=== PATIENT | female | born 1995 ===

== ENCOUNTER 2018-11-04 12:14 | Emergency (ER) | payer OTHER ==
[2018-11-04 12:31] VITALS: BP 116/68
[2018-11-04] MEDS ORDERED: Ondansetron INJ* 2 MG/ML VIAL IV ONE (12:40)
[2018-11-04] MEDS ORDERED: NS 0.9% 1000 ML** 1,000 ML IV ONE (12:41)
--- NOTE | 2018-11-04 13:57 | UC ---
Nausea/Vomiting/Diarrhea HPI - HPI Summary HPI Summary: Ms Hall felt fine yesterday but woke up about 3:00 in the morning not feeling well. She began to get more and more nausea and eventually started to vomit and has been vomiting all morning. She states that she doesn't think she's lost a lot of fluids because she was just vomiting bile. She's had no diarrhea or pain. She says she has no other complaints except that if she sits up she feels worse. She denies tinnitus. - History of Current Complaint Chief Complaint: UCGeneralIllness Stated Complaint: NAUSEOUS Time Seen by Provider: 11/04/18 12:33 Hx Obtained From: Patient Hx Last Menstrual Period: spotting 1 week ago, has implant Onset/Duration: Gradual Onset Timing: Constant Severity Initially: Moderate Severity Currently: Severe Pain Intensity: 10 Aggravating Factor(s): Other: - Upright positioning Alleviating Factor(s): Position Nausea/Vomiting Presence: Nauseated, Vomiting Vomiting Frequency: Every 15-60 minutes Nausea/Vomiting Duration: 0-12 hours Vomiting Characteristics: Bilious Diarrhea Presence: No - Allergies/Home Medications Allergies/Adverse Reactions: Allergies Allergy/AdvReac Type Severity Reaction Status Date / Time No Known Allergies Allergy Verified 11/04/18 12:32 Home Medications: Home Medications Etonogestrel [Nexplanon] 68 mg IMPLANT 11/04/18 [History] PMH/Surg Hx/FS Hx/Imm Hx Previously Healthy: Yes - Surgical History Surgical History: None - Social History Alcohol Use: Rare Substance Use Type: None Smoking Status (MU): Never Smoked Tobacco Review of Systems All Other Systems Reviewed And Are Negative: Yes Physical Exam - Summary Physical Exam Summary: She was nontoxic in appearance with stable vital signs but looked miserable. Triage Information Reviewed: Yes Appearance: Well-Appearing Vital Signs: Initial Vital Signs Temp 97.7 F 11/04/18 12:26 Pulse 74 11/04/18 12:26 Resp 16 11/04/18 12:26 BP 116/68 11/04/18 12:26 Pulse Ox 100 11/04/18 12:26 Vital Signs Reviewed: Yes Eye Exam: Normal - She had a slight amount of nonsustained nystagmus to the left. ENT Exam: Normal Neck exam: Normal Respiratory Exam: Normal Cardiovascular Exam: Normal Abdominal Exam: Normal Bowel Sounds: Positive: Present Naus/Vom/Diarrhea Course/Dx - Course Course Of Treatment: We started an IV here gave her a liter of fluid and some Zofran and she felt significantly improved. I think this is likely viral and I will treat her with Zofran ODT for symptomatic treatment. - Differential Dx/Diagnosis Provider Diagnosis: Nausea & vomiting Discharge - Sign-Out/Discharge Documenting (check all that apply): Patient Departure All imaging exams completed and their final reports reviewed: No Studies - Discharge Plan Condition: Stable Disposition: HOME Patient Education Materials: Acute Nausea and Vomiting (ED) Referrals: No Primary Care Phys,NOPCP [Primary Care Provider] - - Billing Disposition and Condition Condition: STABLE Disposition: Home
[2018-11-04 19:25] LABS: HIV 4th Generation Negative (Negative)
== END 2018-11-04 14:02 | disposition home or self-care (01) ==
LOC: UCEAST 12:14
DX: R11.2 Nausea with vomiting, unspecified (principal)
CPT/HCPCS: 36415; 87389; 96360; 96374; 99202; G0463; J2405

== ENCOUNTER 2018-12-05 18:11 | Emergency (ER) | payer OTHER ==
[2018-12-05] MEDS ORDERED: Ibuprofen TAB* 600 MG PO ONE (19:57)
--- NOTE | 2018-12-05 19:57 | ED ---
Upper Extremity Pain - HPI Summary HPI Summary: Complains of right wrist pain status post fall today. Denies any other pain in her symptoms. - History of Current Complaint Chief Complaint: EDExtremityUpper Stated Complaint: R WRIST PAIN PER PT Time Seen by Provider: 12/05/18 18:50 Hx Obtained From: Patient Hx Last Menstrual Period: spotting 1 week ago, has implant Mechanism Of Injury: Fall From A Standing Position Onset/Duration: Started Hours Ago Timing: Constant Severity Initially: Moderate Severity Currently: Moderate Pain Location: Wrist Character: Aching, Throbbing Aggravating Factor(s): Movement Alleviating Factor(s): Rest, Ice Associated Signs & Symptoms: Positive: Swelling - Allergies/Home Medications Allergies/Adverse Reactions: Allergies Allergy/AdvReac Type Severity Reaction Status Date / Time No Known Allergies Allergy Verified 12/05/18 18:16 PMH/Surg Hx/FS Hx/Imm Hx Endocrine/Hematology History: Denies: Hx Anticoagulant Therapy Cardiovascular History: Denies: Hx Pacemaker/ICD History: Denies: Hx Dialysis Sensory History: Denies: Hx Legally Blind Opthamlomology History: Denies: Hx Eye Prosthesis Neurological History: Denies: Hx Dementia Psychiatric History: Denies: Hx Autism Infectious Disease History: No Infectious Disease History: Denies: Traveled Outside the [place] in Last 30 Days - Family History Known Family History: Positive: Non-Contributory - Social History Alcohol Use: Occasionally Substance Use Type: Reports: None Smoking Status (MU): Never Smoked Tobacco Review of Systems Constitutional: Negative Eyes: Negative ENT: Negative Cardiovascular: Negative Respiratory: Negative Gastrointestinal: Negative Genitourinary: Negative Musculoskeletal: Other Skin: Negative Neurological: Negative Psychological: Normal All Other Systems Reviewed And Are Negative: Yes Physical Exam - Summary Physical Exam Summary: Mild swelling to medial right wrist. Snuffbox tenderness. PMS intact distally. Triage Information Reviewed: Yes Vital Signs On Initial Exam: Initial Vitals Temp Pulse Resp BP Pulse Ox 98.1 F 73 18 126/62 98 12/05/18 18:13 12/05/18 18:13 12/05/18 18:13 12/05/18 18:13 12/05/18 18:13 Vital Signs Reviewed: Yes Appearance: Positive: Well-Appearing Skin: Positive: Warm Head/Face: Positive: Normal Head/Face Inspection Eyes: Positive: Normal Neck: Positive: Supple Respiratory/Lung Sounds: Positive: Clear to Auscultation Cardiovascular: Positive: Normal Abdomen Description: Positive: Nontender Musculoskeletal: Positive: Normal Neurological: Positive: Normal Psychiatric: Positive: Normal AVPU Assessment: Alert - Ishan Coma Scale Best Eye Response: 4 - Spontaneous Best Motor Response: 6 - Obeys Commands Best Verbal Response: 5 - Oriented Coma Scale Total: 15 Procedures - Splinting 1 Location: rt wrist Pre-Made Type: velcro Splint: thumb spica Pre-Proc Neuro Vasc Exam: normal Post-Proc Neuro Vasc Exam: normal Diagnostics - Vital Signs Vital Signs Temp Pulse Resp BP Pulse Ox 12/05/18 18:13 98.1 F 73 18 126/62 98 - Laboratory Lab Statement: Any lab studies that have been ordered have been reviewed, and results considered in the medical decision making process. Course/Dx - Course Course Of Treatment: Complains of right wrist pain status post fall today. Denies any other pain in her symptoms. Vital signs within normal limits. X- ray positive for distal radius fracture. Velcro thumb spica brace administered. Follow-up with orthopedics. - Diagnoses Provider Diagnoses: Distal radius fracture, right Discharge - Sign-Out/Discharge Documenting (check all that apply): Patient Departure Patient Received Moderate/Deep Sedation with Procedure: No - Discharge Plan Condition: Stable Disposition: HOME Prescriptions: Oxycodone HCl 5 mg PO TID 2 Days #4 tablet MDD 3 tabs Patient Education Materials: Wrist Fracture in Adults (ED) Referrals: No Primary Care Phys,NOPCP [Primary Care Provider] - Gilmer Lozano MD [Medical Doctor] - Additional Instructions: Ice, ibuprofen and rest for right wrist. Follow-up with orthopedics Dr. Coy for further evaluation. Return to the ED for any new or worsening symptoms. - Billing Disposition and Condition Condition: STABLE Disposition: Home
[2018-12-05 20:04] VITALS: BP 114/71
== END 2018-12-05 20:03 | disposition home or self-care (01) ==
LOC: ED 18:11
DX: S69.91XA Unspecified injury of right wrist, hand and finger(s), initial encounter (principal); W18.30XA Fall on same level, unspecified, initial encounter; Y92.9 Unspecified place or not applicable
CPT/HCPCS: 99282; A9270-GY